=== PATIENT | female | born 1985 | race Caucasian/White ===

== ENCOUNTER 2017-01-21 16:04 | Inpatient (IN) | payer OTHER ==
[~2017-01-21] VITALS: Ht 157.5 cm; Wt 81.8 kg
[2017-01-21 17:12] LABS: ASPARTATE AMINO TRANSFERASE 16 U/L (15-37); BLOOD UREA NITROGEN 14 mg/dL (7-18)
[2017-01-22] MEDS ORDERED: OXYTOCIN 30U/ 0.9% NaCL 500ML 500 ML IV ONE (05:11)
[2017-01-22] MEDS ORDERED: OXYTOCIN 30U/ 0.9% NaCL 500ML 500 ML IV PRN (05:11)
[2017-01-22] MEDS ORDERED: LACTATED RINGERS 1,000 ML IV SCH (05:11)
[2017-01-22] MEDS ORDERED: D5%-LACTATED RINGERS 1,000 ML IV SCH (05:11)
[2017-01-22] MEDS ORDERED: NEWBORN KIT ONE (05:21)
[2017-01-22 05:22] VITALS: BP 132/93
[2017-01-22] MEDS ORDERED: ONDANSETRON 2MG/ML, 2ML IVPush PRN (05:30)
[2017-01-22] MEDS ORDERED: CALCIUM CARBONATE 500 MG TAB.CHEW PO PRN (05:30)
[2017-01-22] MEDS ORDERED: SODIUM CITRATE/CITRIC ACID 30 ML UDC PO PRN (05:30)
[2017-01-22] MEDS ORDERED: METOCLOPRAMIDE 5 MG/ML, 2ML IVPush PRN (05:30)
[2017-01-22] MEDS ORDERED: BUTORPHANOL 1 MG/ML, 1ML IVPush PRN (05:30)
[2017-01-22] MEDS ORDERED: FENTANYL PF 100 MCG/2ML IV PRN (05:30)
[2017-01-22] MEDS ORDERED: MISOPROSTOL 25 MCG TABLET VG PRN (05:30)
[2017-01-22] MEDS ORDERED: PLEASE ENTER HEIGHT AND WEIGHT MC SCH (06:00)
[2017-01-22] MEDS ORDERED: PLEASE ENTER ALLERGIES MC SCH ×2 (06:30)
[2017-01-22] MEDS ORDERED: MISOPROSTOL 25 MCG TABLET ONE (06:43)
[2017-01-22] MEDS: FENTANYL PF 100 MCG/2ML IVPush PRN ×2 (14:00→14:59)
[2017-01-22] MEDS ORDERED: FENTANYL PF 100 MCG/2ML ONE ×2 (14:01→14:57)
[2017-01-22] MEDS ORDERED: FENTANYL/BUPIV./NS/PF 250 ML EPIDCONT ONE (16:10)
[2017-01-22] MEDS ORDERED: LIDOCAINE/PF 1.5%-EPI 1:200K, 30ML ONE (16:20)
[2017-01-22] MEDS ORDERED: EPHEDRINE 50 MG/ML, 1ML ONE (17:11)
[2017-01-22] MEDS ORDERED: EPHEDRINE 50 MG/ML, 1ML IVPush ONE (17:15)
[2017-01-22] MEDS ORDERED: ONDANSETRON 2MG/ML, 2ML ONE (21:54)
[2017-01-23] VITALS (7 sets, daily range): BP systolic 118–130; BP diastolic 72–81
[2017-01-23] MEDS: OXYTOCIN 30U/ 0.9% NaCL 500ML 500 ML IV SCH ×3 (00:48→20:48)
[2017-01-23] MEDS ORDERED: IBUPROFEN 600 MG TABLET ONE (00:55)
[2017-01-23] MEDS ORDERED: OXYcodone/APAP 5/325MG TABLET ONE (00:55)
[2017-01-23] MEDS: IBUPROFEN 600 MG TABLET PO PRN ×4 (00:57→20:27)
[2017-01-23] MEDS: OXYcodone/APAP 5/325MG TABLET PO PRN ×4 (00:58→19:52)
[2017-01-23] MEDS ORDERED: CALCIUM CARBONATE 500 MG TAB.CHEW PO PRN (01:00)
[2017-01-23] MEDS ORDERED: OXYcodone/APAP 5/325MG TABLET PO PRN (01:00)
[2017-01-23] MEDS ORDERED: CARBOPROST TROMETHAMINE 250 MCG/ML, 1ML IM PRN (01:00)
[2017-01-23] MEDS ORDERED: ONDANSETRON 2MG/ML, 2ML IV PRN (01:00)
[2017-01-23] MEDS ORDERED: MISOPROSTOL 200 MCG TABLET PR PRN (01:00)
[2017-01-23] MEDS ORDERED: ACETAMINOPHEN 325 MG TABLET PO PRN ×2 (01:00)
[2017-01-23] MEDS ORDERED: METHYLERGONOVINE 0.2 MG/ML IM PRN (01:00)
[2017-01-23] MEDS: DOCUSATE 100 MG CAPSULE PO PRN ×2 (07:52→19:52)
[2017-01-23 08:05] LABS: DIFF TOTAL CELLS COUNTED 100 CELL DIFF
[2017-01-23 09:52] LABS: VERIFY COUNTS? YES
[2017-01-23] MEDS: PRENATAL VIT/IRON/FA 1 EACH TABLET PO SCH (12:30)
[2017-01-24] MEDS: IBUPROFEN 600 MG TABLET PO PRN ×3 (03:36→16:40)
[2017-01-24] MEDS: OXYcodone/APAP 5/325MG TABLET PO PRN ×3 (03:36→16:40)
[2017-01-24] MEDS: OXYTOCIN 30U/ 0.9% NaCL 500ML 500 ML IV SCH (06:48)
[2017-01-24 07:18] VITALS: BP 119/76
[2017-01-24] MEDS: DOCUSATE 100 MG CAPSULE PO PRN (09:05)
[2017-01-24] MEDS: PRENATAL VIT/IRON/FA 1 EACH TABLET PO SCH (09:05)
[2017-01-24] MEDS ORDERED: OXYC-302 PO (09:07)
[2017-01-24] MEDS ORDERED: DOCU-30 PO (09:08)
[2017-01-24] MEDS ORDERED: IBUP-1222 PO (09:08)
== END 2017-01-24 20:36 | disposition home or self-care (01) | DRG 775 ==
LOC: LDOP 16:04 → LDIP 01-22 05:07 → EDSTATUS 01-22 16:03 → 2NW 01-23 01:57
PROVIDERS: ADMIT Obstetrics & Gynecology; ATTEND Obstetrics & Gynecology
PROC: 0T9B70Z Drainage of Bladder with Drainage Device, Via Natural or Artificial Opening (ICD-10-PCS; 2017-01-21)
PROC: 10E0XZZ Delivery of Products of Conception, External Approach (ICD-10-PCS; principal; 2017-01-22)
PROC: 10907ZC Drainage of Amniotic Fluid, Therapeutic from Products of Conception, Via Natural or Artificial Opening (ICD-10-PCS; 2017-01-22)
PROC: 0W8NXZZ Division of Female Perineum, External Approach (ICD-10-PCS; 2017-01-22)
PROC: 3E033VJ Introduction of Other Hormone into Peripheral Vein, Percutaneous Approach (ICD-10-PCS; 2017-01-22)
PROC: 00HU33Z Insertion of Infusion Device into Spinal Canal, Percutaneous Approach (ICD-10-PCS; 2017-01-22)
PROC: 3E0R3CZ (ICD-10-PCS; 2017-01-22)
DX: O13.4 Gestational [pregnancy-induced] hypertension without significant proteinuria, complicating childbirth (principal); O99.12 Other diseases of the blood and blood-forming organs and certain disorders involving the immune mechanism complicating childbirth; Z37.0 Single live birth; D69.6 Thrombocytopenia, unspecified; O34.13 Maternal care for benign tumor of corpus uteri, third trimester; D25.9 Leiomyoma of uterus, unspecified; O76 Abnormality in fetal heart rate and rhythm complicating labor and delivery; Z3A.39 39 weeks gestation of pregnancy
CPT/HCPCS: 36415; 59025; 80053; 81001; 81003; 82570; 84156; 84550; 85025; 86850; 86900; 87086; 99201; J3010; J3490; G0463; J2590; J7120; J7121